=== PATIENT | female | born 1980 | race Caucasian/White ===

== ENCOUNTER → 2016-09-06 | Outpatient (REF) | payer BC ==
[~2016-09-06] MED LIST: ACET50TA PO; ANUS2.5C2 TOP; COLA50CA3 PO; IBUP80TA PO; METF1000 PO; METF500T PO; MOM30SS PO; PRENTAB74 PO; [UNRECOGNIZED DRUG - CODE] PO
== END ==
LOC: M LAB REF 16:50
PROVIDERS: ATTEND Family Medicine
DX: R30.0 Dysuria (principal)

== ENCOUNTER → 2017-08-31 | Outpatient (REF) | payer OTHER, BC ==
[2017-09-04 14:13] LABS: HPV HYBRID CAPTURE II Negative (Negative)
== END ==
LOC: M LAB REF 13:24
DX: Z11.51 Encounter for screening for human papillomavirus (HPV) (principal)
CPT/HCPCS: G0123

== ENCOUNTER → 2018-06-19 | Outpatient (REF) | payer OTHER | LOC: M LAB REF 17:14 | DX: R30.0 Dysuria (principal) | CPT/HCPCS: 87186 ==

== ENCOUNTER → 2018-11-01 | Outpatient (REF) | payer OTHER ==
[~2018-11-01] MED LIST changes: -ACET50TA PO; +MAPA500T17 PO
[2018-11-07 14:11] LABS: HPV HYBRID CAPTURE II Negative (Negative)
== END ==
LOC: M LAB REF 13:41
PROVIDERS: ATTEND Advanced Practice Midwife
DX: Z12.4 Encounter for screening for malignant neoplasm of cervix (principal)
CPT/HCPCS: 87624; G0123

== ENCOUNTER → 2019-09-19 | Outpatient (CLI) | payer OTHER ==
[2019-09-19 10:23] LABS: BASO % 0.5 % (0.0-1.0); EOS # 0.1 10^3/uL (0.0-0.5); EOS % 1.1 % (0.0-3.0); HEMATOCRIT 36.2 % (36.0-47.0); HEMOGLOBIN 12.4 g/dl (12.0-15.5); LYMPH # 1.8 10^3/uL (1.5-5.0); LYMPH % 32.7 % (24.0-44.0); MEAN CORPUSCULAR HEMOGLOBIN 30.2 pg (27.0-33.0); MEAN CORPUSCULAR HGB CONC 34.3 g/dl (32.0-36.5); MEAN CORPUSCULAR VOLUME 88.3 fl (80.0-96.0); MONO # 0.4 10^3/uL (0.0-0.8); MONO % 6.6 % (0.0-5.0); NEUTROPHILS # 3.3 10^3/uL (1.5-8.5); NEUTROPHILS % 58.7 % (36.0-66.0); PLATELET COUNT, AUTOMATED 268 10^3/uL (150-450); WHITE BLOOD COUNT 5.6 10^3/uL (4.0-10.0)
[2019-09-19 10:51] LABS: ALBUMIN 4.1 GM/DL (3.2-5.2); ALT/SGPT 12 U/L (12-78); BILIRUBIN,TOTAL 0.4 MG/DL (0.2-1.0); BLOOD UREA NITROGEN 11 MG/DL (7-18); CALCIUM LEVEL 8.8 MG/DL (8.5-10.1); CARBON DIOXIDE LEVEL 30 MEQ/L (21-32); CHLORIDE LEVEL 109 MEQ/L (98-107); CREATININE FOR GFR 0.75 MG/DL (0.55-1.30); FREE T4 1.01 NG/DL (0.76-1.46); GLOMERULAR FILTRATION RATE > 60.0 (>60); GLUCOSE, FASTING 93 MG/DL (70-100); POTASSIUM SERUM 4.4 MEQ/L (3.5-5.1); SODIUM LEVEL 140 MEQ/L (136-145); TOTAL PROTEIN 7.5 GM/DL (6.4-8.2); TROPONIN I < 0.02 NG/ML (< 0.10)
[2019-09-19 10:52] LABS: TOTAL 25(OH) VITAMIN D 30.3 NG/ML (30.0-100.0)
== END ==
LOC: M LAB 09:35
PROVIDERS: ATTEND Physician Assistant
DX: R00.2 Palpitations (principal)

== ENCOUNTER → 2019-09-22 | Outpatient (CLI) | payer OTHER ==
--- NOTE | 2019-09-23 15:32 | HOLTMON ---
[facility] Test Date: 2019-09-22 Pat Name: CONNIE WHYTE Department: Room: - Gender: Female Certified Travel Counselor: TANNERCAMPOS URBINA : 1980 Requested By: YOLANDE Hillman PA-C Order Number: [id number] Reading MD: Crispin Junior Interpretive Statements Patient had a 24 hour holter monitor for palpitations with minimal artifact. Underlying rhythm was sinus. Rate varied from 50-120 beats per minute. There were no significant pauses. There were 1244 singlet ventricular beats recorded, not associated with symptoms. No diary events were recorded. This study does not indicate a cause for reported palpitations. If further study is warranted pursue an event or loop recorder. Electronically Signed on 09-23-2019 15:32:13 EST by Crispin Junior
== END ==
LOC: M EKG 06:33
PROVIDERS: ATTEND Physician Assistant
DX: R00.2 Palpitations (principal)

== ENCOUNTER → 2020-11-11 | Outpatient (REF) | LOC: M LABSMTC 13:07 | PROVIDERS: ATTEND Pediatrics | DX: Z11.52 Encounter for screening for COVID-19 (principal) ==

== ENCOUNTER 2021-04-07 11:02 | Observation (INO) | payer OTHER ==
[~2021-04-07] VITALS: Ht 170.2 cm; Wt 65.5 kg
[~2021-04-07 11:02] MED LIST changes: -ACET-683 PO; -CLEO300C2 PO; -CVS500CA5 PO; -DECA4TAB PO; -IBUP-1022 PO; -IBUP1TAB7 PO; -ISOVUE-370 76% 100ML VIAL As Ordered ONE; -MAXA10TA14 PO; -NORT50CA PO; -PROBCAP14 PO; -TURM1TAB PO
[2021-04-07] MEDS ORDERED: NORT50CA PO (11:31)
[2021-04-07] MEDS ORDERED: MAXA10TA14 PO (11:31)
[2021-04-07] MEDS ORDERED: PIPERACILLIN/TAZOBACTAM SOD 4.5 GM in D5W MINI-BAG PLUS 50 ML IV ONE (11:50)
[2021-04-07] MEDS ORDERED: dexameTHASONE 20MG/5ML VIAL (J1100 PER 1MG) IV ONE (12:05)
[2021-04-07 12:35] LABS: BASO % 0.3 % (0.0-1.0); EOS # 0.1 10^3/uL (0.0-0.5); EOS % 0.8 % (0.0-3.0); HEMATOCRIT 35.9 % (36.0-47.0); HEMOGLOBIN 12.4 g/dl (12.0-15.5); LYMPH # 1.6 10^3/uL (1.5-5.0); LYMPH % 16.3 % (24.0-44.0); MEAN CORPUSCULAR HEMOGLOBIN 30.4 pg (27.0-33.0); MEAN CORPUSCULAR HGB CONC 34.5 g/dl (32.0-36.5); MONO # 0.7 10^3/uL (0.0-0.8); MONO % 6.8 % (2.0-8.0); NEUTROPHILS # 7.5 10^3/uL (1.5-8.5); NEUTROPHILS % 75.4 % (36.0-66.0); PLATELET COUNT, AUTOMATED 315 10^3/uL (150-450); RED BLOOD COUNT 4.08 10^6/uL (4.00-5.40); WHITE BLOOD COUNT 9.9 10^3/uL (4.0-10.0)
[2021-04-07] MEDS: NS 1,000 ML IV SCH ×3 (12:46→21:05)
[2021-04-07 12:55] LABS: BLOOD UREA NITROGEN 7 MG/DL (7-18); CALCIUM LEVEL 8.7 MG/DL (8.5-10.1); CARBON DIOXIDE LEVEL 26 MEQ/L (21-32); CHLORIDE LEVEL 106 MEQ/L (98-107); CREATININE FOR GFR 0.54 MG/DL (0.55-1.30); GLOMERULAR FILTRATION RATE > 60.0 (>60); GLUCOSE, FASTING 91 MG/DL (70-100); POTASSIUM SERUM 3.6 MEQ/L (3.5-5.1); SODIUM LEVEL 137 MEQ/L (136-145)
[2021-04-07] MEDS ORDERED: ACETAMINOPHEN TAB 650MG DOSE (2X325MG) PO PRN (12:55)
[2021-04-07 13:07] LABS: RSV AMPLIFICATION NEGATIVE (NEGATIVE)
[2021-04-07] MEDS ORDERED: TURM1TAB PO (13:39)
[2021-04-07] MEDS ORDERED: CVS500CA5 PO (13:39)
[2021-04-07] MEDS ORDERED: IBUP1TAB7 PO (13:39)
[2021-04-07] MEDS ORDERED: ACET-683 PO (13:39)
[2021-04-07] MEDS ORDERED: PROBCAP14 PO (13:39)
[2021-04-07] MEDS ORDERED: HOME MED LIST COMPLETE! XX SCH (13:40)
[2021-04-07] MEDS ORDERED: CLINDAMYCIN 300 MG in IV 1 EA IV SCH (14:10)
[2021-04-07] MEDS ORDERED: IBUPROFEN 800 MG TAB PO PRN (14:30)
[2021-04-07] MEDS ORDERED: RIZATRIPTAN BENZOATE 10 MG TAB PO PRN (14:30)
--- NOTE | 2021-04-07 14:34 | HPEPDOC ---
[facility] Medical History & Physical Date of Admission Apr 07, 2021 Date of Service: Apr 07, 2021 History and Physical CHIEF COMPLAINT: Left sided facial swelling (unilateral swelling) HISTORY OF PRESENT ILLNESS: Patient is a 40-year-old female presenting with left-sided facial swelling for the past 1 week (since last ). She came to the ED after her neck CT done outpatient. She tried to wait it out but s tates that the swelling and pain has been progressively getting worse. She describes it as a hard, painful, red lump. On Tuesday 04/03 she went to urgent care where she was diagnosed with Sialadenitis and was given Augmentin 875 BID to take; she completed 4 days so far. States that the Augmentin is making her stomach "feel funny" so she is taking a probiotic to counteract that. The swelling, pain, redness is starting to spread to her neck. She tried to suck on some lemon candies but that did not help. Currently she is taking motrin 800mg every 6-8 hrs and tylenol 1g for the pain. She also states that she does have one cavity in her mouth. PAST MEDICAL HISTORY: 1. Migraines PAST SURGICAL HISTORY: 1. 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 REVIEW OF SYSTEMS: CONSTITUTIONAL: denies fever, chills, night sweats HEENT: has trouble swallowing, difficulty opening mouth, pain with moving tongue; denies headaches CARDIOVASCULAR: denies chest pain, palpitations RESPIRATORY: denies shortness of breath, difficulty breathing, wheezing GASTROINTESTINAL: has an upset stomach; denies abdominal pain, n/v/d, constipation, blood in stool GENITOURINARY: denies dysuria, urinary urgency or frequency MUSCULOSKELETAL: denies numbness and tingling in all extremities, denies any muscle aches or joint pains HOME MEDICATIONS: Please see below. PHYSICAL EXAMINATION: VITAL SIGNS: Please see below. GENERAL APPEARANCE: well appearing pleasant; in no acute distress HEENT: Head normocephalic atraumatic; Left sided facial swelling and redness, well circumscribed hard lump from zygomatic arch to submandibular gland; swelling from zygomatic arch down to her neck.; some redness also noted on her chest; unable to visualize in her mouth due to swelling and pain CARDIOVASCULAR: Regular rate and rhythm; no murmurs, rubs or gallops noted LUNGS: Clear to auscultation bilaterally; no wheezes, rales or rhonchi noted ABDOMEN: Normal active bowel sounds; soft, nondistended, no tenderness to palpation MUSCULOSKELETAL: Sensation intact in all 4 extremities; muscle strength 5/5 in all 4 extremities EXTREMITIES: No pitting edema in lower extremities; pedal pulses intact NEUROLOGICAL: CN II-XII grossly intact; no focal neurologic deficits LABORATORY DATA: See below. IMAGIN/16 CT Neck w/ contrast: "Suspected left submandibular sialoadenitis with extensive inflammatory changes and reactive adenopathy. Expansion of the left masseter muscle may reflect reactive change versus primary myositis." MICROBIOLOGY: Please see below. ASSESSMENT: This is a 40-year-old female with a PMHx of migraines presenting with left sided facial swelling concerning for sialadenitis. PLAN: # Sialadenitis - start IV clindamycin 600mg q6h and probiotics - start ibuprofen and tylenol for pain and swelling - ENT consulted; we appreciate their input in the care of this patient - start decadron 6mg q8h - have the patient suck on some sour candies/marbella; also submandibular region massage from posterior to anterior # Migraines -continue at home medications of nortriptyline and rizatriptan DISPOSITION: pending clinical improvement Vital Signs Vital Signs Date Time Temp Pulse Resp B/P (MAP) Pulse Ox O2 Delivery O2 Flow Rate FiO2 04/07/21 11:03 97.9 125 20 143/90 (107) 99 Room Air Laboratory Data Labs 24H Laboratory Tests 2 04/07/21 11:32: Immature Granulocyte % (Auto) 0.4, Neutrophils (%) (Auto) 75.4H, Lymphocytes (%) (Auto) 16.3L, Monocytes (%) (Auto) 6.8, Eosinophils (%) (Auto) 0.8, Basophils (%) (Auto) 0.3, Neutrophils # (Auto) 7.5, Lymphocytes # (Auto) 1.6, Monocytes # (Auto) 0.7, Eosinophils # (Auto) 0.1, Basophils # (Auto) 0.0, Nucleated Red Blood Cells % (auto) 0.0, Anion Gap 5L, Glomerular Filtration Rate > 60.0, Lactic Acid Level 0.9, Calcium Level 8.7 04/07/21 12:04: Coronavirus (COVID-19)(PCR) NEGATIVE, Influenza Type A (RT-PCR) NEGATIVE, Influenza Type B (RT-PCR) NEGATIVE, Respiratory Syncytial Virus (PCR) NEGATIVE CBC/BMP Laboratory Tests 04/07/21 11:32 Microbiology Microbiology 04/07/21 Blood Culture, Received Pending 04/07/21 Blood Culture, Received Pending Home Medications Scheduled Clindamycin Hcl (Cleocin HCl) 300 Mg Capsule, 300 MG PO TID Cranberry Fruit Extract (Cranberry) 500 Mg Capsule, 500 MG PO DAILY Dexamethasone (Decadron) 4 Mg Tablet, 2 MG PO DAILY Lactobacillus Acidophilus (Probiotic) 1 Each Capsule, 1 CAP PO DAILY Nortriptyline HCl (Nortriptyline HCl) 50 Mg Capsule, 50 MG PO QHS Turmeric Root/Kristy Root Ext (Turmeric Curcumin-Kristy Gummy) 150 Mg-25 Mg Tab.chew, 1 TAB PO DAILY Scheduled PRN Ibuprofen (Ibuprofen) 600 Mg Tablet, 600 MG PO Q6H PRN for PAIN Rizatriptan Benzoate (Maxalt) 10 Mg Tablet, 5 MG PO ASDIRECTED PRN for HEADACHE Allergies Coded Allergies: Sulfa (Sulfonamide Antibiotics) (Verified Allergy, Intermediate, HIVES, 07/12/20) cefadroxil (Verified Allergy, Intermediate, HIVES, 07/12/20) A-FIB/CHADSVASC A-FIB History Current/History of A-Fib/PAF?: No GME ATTESTATION GME ATTESTATION My faculty preceptor for this patient encounter was physically present during the encounter and was fully available. All aspects of the patient interview, examination, medical decision making process, and medical care plan development were reviewed and approved by the faculty preceptor. The faculty preceptor is aware and concurs with the plan as stated in the body of this note and will attest to such by his/her cosignature. ATTENDING NOTE I, Kem Barron MD, have independently examined this patient and performed my own physical exam, as well as reviewed the documentation and edited where necessary. I have discussed in detail with the resident / student the findings and plan of treatment as documented by the resident / student and edited their note. I agree with their findings and treatment plan and have edited their documentation. Magaly Villafana DO Apr 07, 2021 14:06 KEM BARRON MD Apr 08, 2021 14:53
[2021-04-07] MEDS ORDERED: CLINDAMYCIN 600 MG in IV 1 EA IV SCH (15:00)
[2021-04-07 16:40] VITALS: BP 141/91
[2021-04-07] MEDS: LACTOBACILLUS ACIDOPHILUS CAP (BACID) PO SCH (16:56)
[2021-04-07] MEDS: CLINDAMYCIN 600 MG in IV 1 EA IV SCH ×2 (17:26→23:52)
[2021-04-07] MEDS: dexameTHASONE 4 MG/ML 1ML VIAL (J1100 PER 1MG) IV SCH (20:53)
[2021-04-07] MEDS ORDERED: NORTRIPTYLINE 25 MG CAP PO SCH (21:00)
[2021-04-07 22:00] VITALS: BP 148/57
[2021-04-08] MEDS: dexameTHASONE 4 MG/ML 1ML VIAL (J1100 PER 1MG) IV SCH ×2 (04:17→12:17)
[2021-04-08] MEDS: CLINDAMYCIN 600 MG in IV 1 EA IV SCH ×2 (04:17→11:10)
[2021-04-08] MEDS: NS 1,000 ML IV SCH (04:19)
[2021-04-08 06:00] VITALS: BP 134/65
[2021-04-08 08:10] LABS: HEMATOCRIT 33.6 % (36.0-47.0); HEMOGLOBIN 11.7 g/dl (12.0-15.5); MEAN CORPUSCULAR HEMOGLOBIN 30.6 pg (27.0-33.0); MEAN CORPUSCULAR HGB CONC 34.8 g/dl (32.0-36.5); PLATELET COUNT, AUTOMATED 359 10^3/uL (150-450); RED BLOOD COUNT 3.82 10^6/uL (4.00-5.40); WHITE BLOOD COUNT 10.4 10^3/uL (4.0-10.0)
[2021-04-08 08:37] LABS: BLOOD UREA NITROGEN 7 MG/DL (7-18); CALCIUM LEVEL 8.3 MG/DL (8.5-10.1); CARBON DIOXIDE LEVEL 23 MEQ/L (21-32); CHLORIDE LEVEL 110 MEQ/L (98-107); CREATININE FOR GFR 0.54 MG/DL (0.55-1.30); GLOMERULAR FILTRATION RATE > 60.0 (>60); GLUCOSE, FASTING 123 MG/DL (70-100); POTASSIUM SERUM 3.8 MEQ/L (3.5-5.1); SODIUM LEVEL 140 MEQ/L (136-145)
[2021-04-08] MEDS: LACTOBACILLUS ACIDOPHILUS CAP (BACID) PO SCH (09:22)
[2021-04-08 09:48] LABS: ALBUMIN 3.2 GM/DL (3.2-5.2); ALT/SGPT 13 U/L (12-78); BILIRUBIN,DIRECT 0.1 MG/DL (0.0-0.2); BILIRUBIN,TOTAL 0.3 MG/DL (0.2-1.0); TOTAL PROTEIN 6.7 GM/DL (6.4-8.2)
[2021-04-08] MEDS ORDERED: IBUP-1022 PO (11:22)
[2021-04-08] MEDS ORDERED: CLEO300C2 PO (11:22)
[2021-04-08] MEDS ORDERED: DECA4TAB PO (11:22)
--- NOTE | 2021-04-08 14:07 | DS.PDOC ---
Discharge Summary General Date of Admission Apr 07, 2021 at 11:03 Date of Discharge 04/08/2021 discharge to home Discharge Summary PROCEDURES PERFORMED DURING STAY: None ADMITTING DIAGNOSES: 1. Sialadenitis 2. Migraines DISCHARGE DIAGNOSES: 1. Sialadenitis 2. Migraines COMPLICATIONS/CHIEF COMPLAINT: Sialadenitis. HISTORY OF PRESENT ILLNESS: Patient is a 40-year-old female presenting with left-sided facial swelling for the past 1 week (since last ). She came to the ED after her neck CT done outpatient 04/07. On Tuesday 04/03 she went to urgent care where she was diagnosed with Sialadenitis and was given Augmentin 875 BID to take but swelling, pain, redness is starting to spread to her neck and is getting worse. She was admitted for sialadenitis. HOSPITAL COURSE: During her stay at the hospital, she was placed on IV clindamycin and probiotics as well as Decadron. Overnight, she noticed drainage starting to ooze out from the bottom of her mouth. Cultures were taken from the bottom of her mouth as well as blood cultures. Will need to follow up with PCP regarding results of those cultures. As she showed improvement on the swelling as well as the redness, patient was deemed stable for discharge. Upon discharge, patient will take oral Clindamycin 600mg for the next 4 days as well as Decadron 2mg for the next 3 days. DISCHARGE MEDICATIONS: Please see below. ALLERGIES: Please see below. PHYSICAL EXAMINATION ON DISCHARGE: VITAL SIGNS: Please see below. GENERAL: Well-appearing; pleasant; in no acute distress HEENT: Head normocephalic atraumatic; left-sided facial swelling and redness improved from yesterday; well circumscribed hard lump from zygomatic arch to submandibular gland; purulent drainage on the floor of left mouth; decreased swelling in mouth CARDIOVASCULAR EXAMINATION: Regular rate and rhythm; no murmurs, rubs or gallops noted RESPIRATORY EXAMINATION: Lungs clear to auscultation bilaterally; no wheezes, rales or rhonchi noted ABDOMINAL EXAMINATION: Normal active bowel sounds; soft, nondistended, no tenderness to palpation EXTREMITIES: Sensation intact in all 4 extremities; muscle strength 5 out of 5 in all 4 extremities; no pitting edema in lower extremities; pedal pulses intact SKIN: No new lesions noted NEUROLOGICAL EXAMINATION: Cranial nerves II through XII grossly intact; no focal neurologic deficit LABORATORY DATA: Please see below. IMAGIN/16 CT Neck w/ contrast: "Suspected left submandibular sialoadenitis with extensive inflammatory changes and reactive adenopathy. Expansion of the left masseter muscle may reflect reactive change versus primary myositis." PROGNOSIS: Good ACTIVITY: As tolerated DIET: As tolerated DISPOSITION: Discharged to home DISCHARGE INSTRUCTIONS: 1. Please follow-up with your PCP in 2 to 3 days for sialadenitis as well as blood cultures and culture from mouth. 2. Please take oral Clindamycin 300mg three times a day for the next 4 days as well as probiotics continued from home. 3. Please take Decadron 2mg once a day as well as ibuprofen every 6 hours for the next 3 days for swelling in mouth and neck. 4. Please suck on some sour candies/marbella as much as tolerated to stimulate salivary glands. 5. Please perform submandibular region massage from posterior to anterior to h elp facilitate moving the pus out. 6. Continue your home medications for migraines. 7. If symptoms worsen, please return to the hospital for further evaluation. ITEMS TO FOLLOWUP ON ON OUTPATIENT: 1. Blood cultures 2. Mouth culture DISCHARGE CONDITION: Stable TIME SPENT ON DISCHARGE: 31 minutes. Vital Signs/I&Os Vital Signs Date Time Temp Pulse Resp B/P (MAP) Pulse Ox O2 Delivery O2 Flow Rate FiO2 04/08/21 06:00 98.3 102 18 134/65 (88) 98 Room Air I&O- Last 24 Hours up to 6 AM 04/08/21 06:00 Intake Total 250 ml Balance 250 ml Laboratory Data Labs 24H Laboratory Tests 2 04/07/21 11:32: Immature Granulocyte % (Auto) 0.4, Neutrophils (%) (Auto) 75.4H, Lymphocytes (%) (Auto) 16.3L, Monocytes (%) (Auto) 6.8, Eosinophils (%) (Auto) 0.8, Basophils (%) (Auto) 0.3, Neutrophils # (Auto) 7.5, Lymphocytes # (Auto) 1.6, Monocytes # (Auto) 0.7, Eosinophils # (Auto) 0.1, Basophils # (Auto) 0.0, Nucleated Red Blood Cells % (auto) 0.0, Anion Gap 5L, Glomerular Filtration Rate > 60.0, Lactic Acid Level 0.9, Calcium Level 8.7 04/07/21 12:04: Coronavirus (COVID-19)(PCR) NEGATIVE, Influenza Type A (RT-PCR) NEGATIVE, Influenza Type B (RT-PCR) NEGATIVE, Respiratory Syncytial Virus (PCR) NEGATIVE 04/08/21 07:39: Nucleated Red Blood Cells % (auto) 0.0, Anion Gap 7L, Glomerular Filtration Rate > 60.0, Calcium Level 8.3L, Total Bilirubin 0.3, Direct Bilirubin 0.1, Aspartate Amino Transf (AST/SGOT) 12, Alanine Aminotransferase (ALT/SGPT) 13, Alkaline Phosphatase 64, Total Protein 6.7, Albumin 3.2, Albumin/Globulin Ratio 0.9L CBC/BMP Laboratory Tests 04/07/21 11:32 04/08/21 07:39 Microbiology Microbiology 04/08/21 Gram Stain - Final, Resulted 04/08/21 Body Fluid Culture, Resulted Pending 04/07/21 Blood Culture, Received Pending 04/07/21 Blood Culture, Received Pending Discharge Medications Scheduled Clindamycin Hcl (Cleocin HCl) 300 Mg Capsule, 300 MG PO TID Cranberry Fruit Extract (Cranberry) 500 Mg Capsule, 500 MG PO DAILY, (Reported) Dexamethasone (Decadron) 4 Mg Tablet, 2 MG PO DAILY Lactobacillus Acidophilus (Probiotic) 1 Each Capsule, 1 CAP PO DAILY, (Reported) Nortriptyline HCl (Nortriptyline HCl) 50 Mg Capsule, 50 MG PO QHS, (Reported) Turmeric Root/Kristy Root Ext (Turmeric Curcumin-Kristy Gummy) 150 Mg-25 Mg Tab.chew, 1 TAB PO DAILY, (Reported) Scheduled PRN Ibuprofen (Ibuprofen) 600 Mg Tablet, 600 MG PO Q6H PRN for PAIN Rizatriptan Benzoate (Maxalt) 10 Mg Tablet, 5 MG PO ASDIRECTED PRN for HEADACHE, (Reported) Allergies Coded Allergies: Sulfa (Sulfonamide Antibiotics) (Verified Allergy, Intermediate, HIVES, 07/12/20) cefadroxil (Verified Allergy, Intermediate, HIVES, 07/12/20) GME ATTESTATION GME ATTESTATION My faculty preceptor for this patient encounter was physically present during the encounter and was fully available. All aspects of the patient interview, examination, medical decision making process, and medical care plan development were reviewed and approved by the faculty preceptor. The faculty preceptor is aware and concurs with the plan as stated in the body of this note and will attest to such by his/her cosignature. Magaly Villafana DO Apr 08, 2021 11:23
--- NOTE | 2021-04-08 15:05 | CR ---
CONSULTATION DATE: 04/08/2021 CHIEF COMPLAINT: Swelling of the left upper neck and sialadenitis. HISTORY OF PRESENT ILLNESS: This 40-year-old woman noticed swelling in the left upper neck about a week ago. She has been treated with oral Augmentin without improvement of her symptoms. .She started to experience some trismus. As such, she presented to the [facility] Emergency Department (ED) for further evaluation. She also had a CT of the neck done on 04/07/2021. There was left submandibular sialadenitis with extensive inflammatory changes and reactive adenopathy. No evidence of sialolithiasis. As such, patient was admitted to the hospital for intravenous (IV) antibiotics and IV steroids. After receiving the treatment by IV, patient had noticed significant improvement of her symptoms, including trismus and left upper neck pain, overnight. MEDICAL HISTORY: Migraines. SURGICAL HISTORY: Tonsillectomy. 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 Nonsmoker, nonalcohol user. No history of illicit or IV drug abuse. FAMILY HISTORY: Noncontributory. ALLERGIES: SULFA and CEFADROXIL. REVIEW OF SYSTEMS: Noncontributory. HOME MEDICATIONS: Reviewed. IMAGING: CT neck images reviewed and agree with the summary of the report. PHYSICAL EXAMINATION: On examination, patient appeared in no acute distress. EARS: Normal pinna. FACE: Swelling of the left submandibular triangle extending superiorly toward the parotid region. Normocephalic. Facial motion symmetrical. ORAL: Mild trismus. Oral cavity moist. Floor of mouth not elevated. Tongue mobility full and symmetrical. OROPHARYNX: Clear. Tonsil fossa, posterior pharyngeal wall clear. NECK: Firm left submandibular triangle. No palpable cervical lymphadenopathy. No rigidity of the neck. Trachea is midline. IMPRESSION: This 40-year-old woman has sialadenitis of the left submandibular gland. She has responded well to the IV clindamycin and IV Decadron. At this time patient could continue with the oral regimen, as she already experienced significant improvement. She is to continue with the massage of the submandibular gland, use of sour candies, and maintain good oral hydration. I will see the patient again in about 1-2 weeks following her discharge from the hospital.
== END 2021-04-08 14:00 | disposition home or self-care (01) ==
LOC: M ED 11:02 → M ED INP 11:03 → ENRESERV 14:34 → M MSPAV 16:39
PROVIDERS: ADMIT Internal Medicine; ATTEND Internal Medicine
DX: K11.21 Acute sialoadenitis (principal); G43.909 Migraine, unspecified, not intractable, without status migrainosus; Z79.899 Other long term (current) drug therapy; Z88.2 Allergy status to sulfonamides; Z88.8 Allergy status to other drugs, medicaments and biological substances
CPT/HCPCS: 36415; 80048; 80076; 83605; 85025; 85027; 87040; 87070; 87077; 87205; 87631; 96361; 96365; 96366; 96375; 99284; J1100; J2543

== ENCOUNTER → 2021-04-07 | Outpatient (CLI) | payer OTHER ==
[~2021-04-07] MED LIST changes: +ACET-683 PO; +CLEO300C2 PO; +CVS500CA5 PO; +DECA4TAB PO; +IBUP-1022 PO; +IBUP1TAB7 PO; +ISOVUE-370 76% 100ML VIAL As Ordered ONE; +MAXA10TA14 PO; +NORT50CA PO; +PROBCAP14 PO; +TURM1TAB PO
--- NOTE | 2021-04-07 09:59 | REPVR ---
PROCEDURE INFORMATION: Exam: CT Neck With Contrast Exam date and time: 04/07/2021 9:10 AM Age: 40 years old Clinical indication: Mass, lump, or swelling in neck; Left; Additional info: Sialoadenitis TECHNIQUE: Imaging protocol: Computed tomography images of the neck with contrast. Radiation optimization: All CT scans at this facility use at least one of these dose optimization techniques: automated exposure control; mA and/or kV adjustment per patient size (includes targeted exams where dose is matched to clinical indication); or iterative reconstruction. Contrast material: ISOVUE 370; Contrast volume: 75 ml; Contrast route: INTRAVENOUS (IV); COMPARISON: No relevant prior studies available. FINDINGS: Nasopharynx: Unremarkable. Oropharynx: Unremarkable. No significant tonsillar enlargement. Hypopharynx: Unremarkable. Larynx: Unremarkable. Normal epiglottis. Retropharyngeal space: Unremarkable. Submandibular/Parotid glands: The left submandibular gland is enlarged. There is no radiopaque sialolith. Thyroid: Normal. No enlarged or calcified nodules. Lymph nodes: There is focal left submandibular lymphadenopathy, likely reactive. Trachea: Visualized trachea is unremarkable. Lungs: Unremarkable as visualized. Bones/joints: Unremarkable. No acute fracture. Soft tissues: There is left facial soft tissue swelling and induration. There is expansion of the left masseter muscle. Changes extend into the left submandibular space. IMPRESSION: Suspected left submandibular sialoadenitis with extensive inflammatory changes and reactive adenopathy. Expansion of the left masseter muscle may reflect reactive change versus primary myositis. Electronically signed by: Imelda Perez On 04/07/2021 09:59:02 AM
== END ==
LOC: M RAD 08:40
PROVIDERS: ATTEND Physician Assistant
DX: K11.20 Sialoadenitis, unspecified (principal)
CPT/HCPCS: 70491; Q9967

== ENCOUNTER → 2022-02-10 | Outpatient (REF) ==
[~2022-02-10] MED LIST changes: +ACET-683 PO; +CLEO300C2 PO; +CVS500CA5 PO; +DECA4TAB PO; +IBUP-1022 PO; +IBUP1TAB7 PO; +MAXA10TA14 PO; +NORT50CA PO; +PROBCAP14 PO; +TURM1TAB PO
== END ==
LOC: M EMP 09:26
PROVIDERS: ATTEND Family Medicine
DX: Z20.822 Contact with and (suspected) exposure to COVID-19 (principal)

== ENCOUNTER → 2023-07-26 | Outpatient (REF) | payer OTHER ==
[~2023-07-26] MED LIST changes: -MAXA10TA14 PO; +RIZA10TA64 PO
== END ==
LOC: M SFHCWAGY 13:20
PROVIDERS: ATTEND Nurse Practitioner Family
DX: Z12.4 Encounter for screening for malignant neoplasm of cervix (principal); N73.9 Female pelvic inflammatory disease, unspecified

== ENCOUNTER → 2023-07-26 | Outpatient (CLI) | payer OTHER | LOC: M WHC 09:36 | PROVIDERS: ATTEND Nurse Practitioner Family | DX: Z12.31 Encounter for screening mammogram for malignant neoplasm of breast (principal) ==

== ENCOUNTER → 2023-08-09 | Outpatient (REF) | payer BC | LOC: M SFHCWAGY 13:13 | PROVIDERS: ATTEND Nurse Practitioner Family | DX: Z12.4 Encounter for screening for malignant neoplasm of cervix (principal); R87.615 Unsatisfactory cytologic smear of cervix ==

== ENCOUNTER → 2023-08-09 | Outpatient (CLI) | payer BC, OTHER | LOC: M WHC 09:56 | PROVIDERS: ATTEND Nurse Practitioner Family | DX: Z12.31 Encounter for screening mammogram for malignant neoplasm of breast (principal); N60.01 Solitary cyst of right breast; N63.21 Unspecified lump in the left breast, upper outer quadrant | CPT/HCPCS: 76642; 77066; G0279 ==

== ENCOUNTER → 2024-04-21 | Outpatient (REF) ==
[~2024-04-21] MED LIST changes: +CRAN500C11 PO; -CVS500CA5 PO
== END ==
LOC: M EMP 08:32
PROVIDERS: ATTEND Family Medicine
DX: Z11.52 Encounter for screening for COVID-19 (principal)